=== PATIENT | male | born 1990 | race Two or more races ===

== ENCOUNTER 2022-06-11 12:36 | Emergency (ER) | payer BC ==
[~2022-06-11] VITALS: Ht 180.3 cm; Wt 65.0 kg
[2022-06-11 12:45] VITALS: BP 116/78
[2022-06-11] MEDS ORDERED: METH-653 MT (12:52)
[2022-06-11] MEDS ORDERED: IBUP-2029 MT (12:52)
[2022-06-11] MEDS ORDERED: ACETAMINOPHEN 325MG TABLET PO ONE (13:00)
[2022-06-11] MEDS ORDERED: CYCLOBENZAPRINE 10MG TABLET PO ONE (13:00)
== END 2022-06-11 13:15 | disposition home or self-care (01) ==
LOC: ER 12:36
DX: S09.90XA Unspecified injury of head, initial encounter (principal); V49.9XXA Car occupant (driver) (passenger) injured in unspecified traffic accident, initial encounter; Y93.89 Activity, other specified; Y92.89 Other specified places as the place of occurrence of the external cause; Y99.8 Other external cause status
CPT/HCPCS: 99283